=== PATIENT | male | born 1945 | race Caucasian/White ===

== ENCOUNTER 2017-08-19 17:25 | Emergency (ER) | payer MEDICARE, BC ==
[2017-08-19 17:48] VITALS: BP 156/91
--- NOTE | 2017-08-19 19:49 | EDM.PDOC ---
ED HPI GENERAL MEDICAL PROBLEM - General Chief Complaint: Lower Extremity Injury/Pain Stated Complaint: FELL ON ICE, BAD PAIN IN LEFT HIP Time Seen by Provider: 08/19/17 18:21 Source of Information: Reports: Patient, RN Notes Reviewed History Limitations: Reports: No Limitations - History of Present Illness INITIAL COMMENTS - FREE TEXT/NARRATIVE: 18.36 Brought in by Chief complaint Left leg pain History of present illness 72-year-old male slipped on ice left leg went sliding out to the side and he went down. He felt a snap or tear in his left hamstring area. Very difficult to walk and move after that, very slow to walk, drove 2 hours home, then his drove him here. Recently seen for left knee, has arthritis there and for right shoulder pain, has rotator cuff upcoming surgery. Did not taking any analgesics for his pain yet Left Leg Pain Score (Numeric/FACES): 4 - Related Data Allergies Allergy/AdvReac Type Severity Reaction Status Date / Time No Known Allergies Allergy Verified 08/19/17 18:06 Home Meds: Home Meds Aspirin [Adult Low Dose Aspirin EC] 81 mg PO DAILY 05/13/14 [History] Metoprolol Tartrate [Lopressor] 12.5 mg PO BID 05/13/14 [History] Multivitamin [Multi-Vitamin Daily] 1 tab PO DAILY 05/13/14 [History] Nitroglycerin [Nitrostat] 0.4 mg SL DAILY 05/13/14 [History] Simvastatin [Zocor] 20 mg PO BEDTIME 05/13/14 [History] Diclofenac Sodium [Voltaren 1%] 1 applic TP QID 10/27/15 [History] Naproxen Sodium 220 mg PO DAILY PRN 10/27/15 [History] [place]-3/DHA/Epa/Fish Oil [[place]-3 Fish Oil 1,000 MG Sfgl] 1,000 mg PO DAILY [History] Acetaminophen/oxyCODONE [Percocet 325-5 MG] 1 - 2 each PO Q4H PRN #12 tab [Rx] Amoxicillin/Clavulanate K [Augmentin 875-125 MG] 1 tab PO BID 08/19/17 [History] Cyclobenzaprine HCl 10 mg PO TID PRN #10 tablet 08/19/17 [Rx] Past Medical History HEENT History: Reports: Cataract, Hard of Hearing Cardiovascular History: Reports: Bypass, High Cholesterol, Hypertension Respiratory History: Reports: None Gastrointestinal History: Reports: None Genitourinary History: Reports: Prostate Disorder Musculoskeletal History: Reports: Back Pain, Chronic, Other (See Below) Other Musculoskeletal History: BROKEN TOES Neurological History: Reports: None Psychiatric History: Reports: None Endocrine/Metabolic History: Reports: None Hematologic History: Reports: None Immunologic History: Reports: None Oncologic (Cancer) History: Reports: None Dermatologic History: Reports: None - Infectious Disease History Infectious Disease History: Reports: None - Past Surgical History HEENT Surgical History: Reports: Adenoidectomy, Cataract Surgery, Tonsillectomy , Other (See Below) Cardiovascular Surgical History: Reports: Coronary Artery Bypass Male Surgical History: Reports: Prostate Biopsy Neurological Surgical History: Reports: Discectomy, Laminectomy Social & Family History - Family History Family Medical History: Noncontributory HEENT: Reports: None Other HEENT Family History: PT STATES HE KNOWS VERY LITTLE ABOUT HIS FAMILY MEDICAL HISTORY Cardiac: Reports: None Respiratory: Reports: COPD GI: Reports: GERD : Reports: None OBGYN: Reports: None Musculoskeletal: Reports: None Neurological: Reports: None Psychiatric: Reports: None Endocrine/Metabolic: Reports: None Hematologic: Reports: None Immunologic: Reports: None Dermatologic: Reports: None Oncologic: Reports: None - Tobacco Use Smoking Status *Q: Never Smoker Years of Tobacco use: 6 Packs/Tins Daily: 0.2 Used Tobacco, but Quit: Yes Month Tobacco Last Used: 1969 Second Hand Smoke Exposure: No - Caffeine Use Caffeine Use: Reports: Coffee - Alcohol Use Days Per Week of Alcohol Use: 2 Number of Drinks Per Day: 1 Total Drinks Per Week: 2 - Recreational Drug Use Recreational Drug Use: No Review of Systems - Review of Systems Review Of Systems: See Below Constitutional: Reports: No Symptoms Eyes: Reports: No Symptoms Mouth/Throat: Reports: No Symptoms Respiratory: Reports: No Symptoms GI/Abdominal: Reports: No Symptoms Musculoskeletal: Reports: Shoulder Pain (Right), Leg Pain (Left hamstring), Joint Pain (Left knee) Skin: Reports: No Symptoms Neurological: Reports: No Symptoms ED EXAM, GENERAL - Physical Exam Exam: See Below Exam Limited By: No Limitations General Appearance: Alert, Mild Distress, Other (Appears well, occasionally wincing in pain and spasms in his hamstring area) Eye Exam: Bilateral Eye: Normal Inspection Nose: Normal Inspection Head: Atraumatic, Normocephalic Neck: Normal Inspection Respiratory/Chest: No Respiratory Distress, No Accessory Muscle Use Cardiovascular: Normal Peripheral Pulses, Regular Rate, Rhythm Extremities: Other (Tenderness upper end left hamstringDecreased ability to move against resistance, appears to be some deficiency in the muscle, no obvious swelling) Neurological: Alert, Oriented, No Motor/Sensory Deficits Skin Exam: Warm, Dry, Intact, Normal Color, No Rash Course - Vital Signs Last Recorded V/S: Last Vital Signs Temp 36.6 C 08/19/17 18:04 Pulse 60 08/19/17 18:04 Resp 18 08/19/17 18:04 BP 156/91 H 08/19/17 18:04 Pulse Ox 95 08/19/17 18:04 - Re-Assessments/Exams Free Text/Narrative Re-Assessment/Exam: 08/19/17 19:47 72-year-old male who slipped on ice with injury to left hamstring Definite weakness in that muscle some deficiency on exam, possible partial tear X-ray pelvis negative follow-up with orthopedics in the next week because of possible hamstring tear Medications as below Has a walker at home Crutches can be obtained if walker does not well for him 08/19/17 19:50 08/19/17 20:02 Departure - Departure Time of Disposition: 19:48 Disposition: Home, Self-Care 01 Condition: Good Clinical Impression: Hamstring muscle strain Qualifiers: Encounter type: initial encounter Laterality: left Qualified Code(s): S76.312A - Strain of muscle, fascia and tendon of the posterior muscle group at thigh level, left thigh, initial encounter - Discharge Information Prescriptions: Acetaminophen/oxyCODONE [Percocet 325-5 MG] 1 - 2 each PO Q4H PRN #12 tab PRN Reason: Moderate to severe pain Cyclobenzaprine HCl 10 mg PO TID PRN #10 tablet PRN Reason: Muscle Spasm Instructions: Muscle Strain, [id number] Referrals: Art Gerard PA-C [Primary Care Provider] - Forms: ED Department Discharge Additional Instructions: Staying active within the limits of your pain Use walker or crutches for ambulation Make appointment with orthopedics in the next week
--- NOTE | 2017-08-20 14:51 | CR ---
Pelvis 1V or 2V INDICATION: LT BUTTOCKS PAIN, FALL FINDINGS: No acute fracture. Mild degenerative narrowing both hips.
== END 2017-08-19 20:27 | disposition home or self-care (01) ==
LOC: JP.ED 17:25
DX: S76.312A Strain of muscle, fascia and tendon of the posterior muscle group at thigh level, left thigh, initial encounter (principal); I10 Essential (primary) hypertension; E78.00 Pure hypercholesterolemia, unspecified; Z87.891 Personal history of nicotine dependence; Z79.82 Long term (current) use of aspirin; Z79.899 Other long term (current) drug therapy; W00.0XXA Fall on same level due to ice and snow, initial encounter
CPT/HCPCS: 72170; 72170-26; 99283; 99284

== ENCOUNTER 2018-01-06 10:38 | Emergency (ER) | payer MEDICARE, BC ==
[2018-01-06] MEDS ORDERED: Aspirin 81 MG Tab.Chew PO ONE (11:43)
--- NOTE | 2018-01-06 11:46 | EDM.PDOC ---
ED HPI GENERAL MEDICAL PROBLEM - General Chief Complaint: Chest Pain Stated Complaint: HIGH BP/CHEST DISCOMFORT Time Seen by Provider: 01/06/18 11:44 Source of Information: Reports: Patient, Family, RN Notes Reviewed History Limitations: Reports: No Limitations - History of Present Illness INITIAL COMMENTS - FREE TEXT/NARRATIVE: 72-year-old gentleman presents to the emergency department day complaint of chest pressure, he states the pressure started last night has come and gone he did have about this morning he was nauseated he always feels short of breath because of a history of coronary artery bypass grafting Chest Pain Score (Numeric/FACES): 2 - Related Data Allergies Allergy/AdvReac Type Severity Reaction Status Date / Time No Known Allergies Allergy Verified 01/06/18 10:51 Home Meds: Home Meds Aspirin [Adult Low Dose Aspirin EC] 81 mg PO DAILY 05/13/14 [History] Metoprolol Tartrate [Lopressor] 12.5 mg PO BID 05/13/14 [History] Multivitamin [Multi-Vitamin Daily] 0.5 tab PO BID 05/13/14 [History] Nitroglycerin [Nitrostat] 0.4 mg SL DAILY 05/13/14 [History] Simvastatin [Zocor] 20 mg PO BEDTIME 05/13/14 [History] Diclofenac Sodium [Voltaren 1%] 1 applic TP QID PRN 10/27/15 [History] Naproxen Sodium 220 mg PO DAILY PRN 10/27/15 [History] [place]-3/DHA/Epa/Fish Oil [[place]-3 Fish Oil 1,000 MG Sfgl] 1,000 mg PO DAILY [History] Tamsulosin [Flomax] 0.4 mg PO BEDTIME 01/06/18 [History] Past Medical History HEENT History: Reports: Cataract, Hard of Hearing Cardiovascular History: Reports: Bypass, CAD, High Cholesterol, Hypertension Genitourinary History: Reports: Prostate Disorder Musculoskeletal History: Reports: Back Pain, Chronic, Other (See Below) Other Musculoskeletal History: L hamstring strain - Past Surgical History HEENT Surgical History: Reports: Adenoidectomy, Cataract Surgery, Tonsillectomy , Other (See Below) Male Surgical History: Reports: Prostate Biopsy Neurological Surgical History: Reports: Discectomy, Laminectomy Social & Family History - Family History Family Medical History: Noncontributory HEENT: Reports: None Other HEENT Family History: PT STATES HE KNOWS VERY LITTLE ABOUT HIS FAMILY MEDICAL HISTORY Cardiac: Reports: None Respiratory: Reports: COPD GI: Reports: GERD : Reports: None OBGYN: Reports: None Musculoskeletal: Reports: None Neurological: Reports: None Psychiatric: Reports: None Endocrine/Metabolic: Reports: None Hematologic: Reports: None Immunologic: Reports: None Dermatologic: Reports: None Oncologic: Reports: None - Tobacco Use Smoking Status *Q: Unknown Ever Smoked Years of Tobacco use: 6 Packs/Tins Daily: 0.2 Used Tobacco, but Quit: Yes Month/Year Tobacco Last Used: 1969 Second Hand Smoke Exposure: No - Caffeine Use Caffeine Use: Reports: Coffee - Alcohol Use Days Per Week of Alcohol Use: 2 Number of Drinks Per Day: 1 Total Drinks Per Week: 2 - Recreational Drug Use Recreational Drug Use: No ED ROS GENERAL - Review of Systems Review Of Systems: See Below Constitutional: Reports: No Symptoms HEENT: Reports: No Symptoms Respiratory: Reports: Shortness of Breath. Denies: Cough, Sputum Cardiovascular: Reports: Chest Pain, Dyspnea on Exertion GI/Abdominal: Reports: No Symptoms : Reports: No Symptoms Musculoskeletal: Reports: No Symptoms Skin: Reports: No Symptoms Neurological: Reports: No Symptoms ED EXAM, GENERAL - Physical Exam Exam: See Below Exam Limited By: No Limitations General Appearance: Alert, WD/WN, No Apparent Distress Eye Exam: Bilateral Eye: Normal Inspection Head: Atraumatic, Normocephalic Neck: Normal Inspection, Supple, Non-Tender, Full Range of Motion Respiratory/Chest: No Respiratory Distress, Lungs Clear, Normal Breath Sounds, No Accessory Muscle Use, Other (tender to palpation of left chest) Cardiovascular: Regular Rate, Rhythm, No Murmur GI/Abdominal: Soft, Non-Tender Extremities: No Pedal Edema Course - Vital Signs Last Recorded V/S: Last Vital Signs Temp 97.2 F 01/06/18 10:47 Pulse 63 01/06/18 10:47 Resp 14 01/06/18 10:47 BP 155/76 H 01/06/18 10:47 Pulse Ox 96 01/06/18 10:47 - Orders/Labs/Meds Orders: Active Orders 24 hr Category Date Time Status Cardiac Monitoring [RC] .As Directed Care 01/06/18 11:43 Active EKG Documentation Completion [RC] ASDIRECTED Care 01/06/18 11:43 Active EKG 12 Lead [EK] Stat Ther 01/06/18 11:43 Ordered Labs: Laboratory Tests 01/06/18 01/06/18 Range/Units 11:52 11:52 WBC 5.2 (4.5-11.0) K/uL RBC 4.73 (4.30-5.90) M/uL Hgb 14.2 (12.0-15.0) g/dL Hct 41.7 (40.0-54.0) % MCV 88 (80-98) fL MCH 30 (27-31) pg MCHC 34 (32-36) % Plt Count 244 (150-400) K/uL Neut % (Auto) 66 (36-66) % Lymph % (Auto) 21 L (24-44) % [place] % (Auto) 12 H (2-6) % Eos % (Auto) 2 (2-4) % Baso % (Auto) 1 (0-1) % Sodium 141 (140-148) mmol/L Potassium 4.4 (3.6-5.2) mmol/L Chloride 108 (100-108) mmol/L Carbon Dioxide 25 (21-32) mmol/L Anion Gap 7.7 (5.0-14.0) mmol/L BUN 20 H (7-18) mg/dL Creatinine 0.9 (0.8-1.3) mg/dL Est Cr Clr Drug Dosing 72.83 mL/min Estimated GFR (MDRD) > 60 (>60) Glucose 97 (74-106) mg/dL Calcium 9.1 D (8.5-10.1) mg/dL Total Bilirubin 0.5 (0.2-1.0) mg/dL AST 19 (15-37) U/L ALT 39 (12-78) U/L Alkaline Phosphatase 49 (46-116) U/L Troponin I < 0.017 (0.000-0.056) ng/mL Total Protein 6.7 (6.4-8.2) g/dL Albumin 3.9 (3.4-5.0) g/dL Globulin 2.8 (2.3-3.5) g/dL Albumin/Globulin Ratio 1.4 (1.2-2.2) Meds: Medications Discontinued Medications Generic Name Dose Route Start Last Admin Trade Name Freq PRN Reason Stop Dose Admin Aspirin 324 mg 01/06/18 11:43 01/06/18 12:10 Aspirin PO 01/06/18 11:44 324 mg ONETIME ONE Administration Ketorolac Tromethamine 60 mg 01/06/18 12:26 01/06/18 12:33 Toradol IM 01/06/18 12:27 60 mg ONETIME ONE Administration Departure - Departure Time of Disposition: 13:44 Disposition: Home, Self-Care 01 Condition: Good Clinical Impression: Atypical chest pain Referrals: Magno Arnett PA [Primary Care Provider] - Forms: ED Department Discharge Additional Instructions: Follow-up with your primary care in the next 3-5 days for reevaluation, call return to the emergency department worsening of symptoms - My Orders Last 24 Hours: My Active Orders 01/06/18 11:43 Cardiac Monitoring [RC] .As Directed EKG Documentation Completion [RC] ASDIRECTED EKG 12 Lead [EK] Stat - Assessment/Plan Last 24 Hours: My Active Orders 01/06/18 11:43 Cardiac Monitoring [RC] .As Directed EKG Documentation Completion [RC] ASDIRECTED EKG 12 Lead [EK] Stat Plan: Assessment Acuity = acute Site and laterality = [chest pain complicated patient with known history coronary artery disease] Etiology = suspicious for muscle skeletal Manifestations = none Location of injury = Home Lab values = CBC, CMP, troponin, EKG, chest x-ray unremarkable Plan He had good relief with the Toradol injection is chest pain-free at this time have him follow-up with his primary care in the next 3-5 days for reevaluation This note was dictated using [employer] voice recognition software please call with any questions on syntax or marilyn.
--- NOTE | 2018-01-06 12:10 | CR ---
Sternotomy. Heart size upper limits of normal. Low lung volumes. No focal consolidation.
[2018-01-06] MEDS ORDERED: Ketorolac 60 MG/2 ML SDV IM ONE (12:26)
[2018-01-06 13:50] VITALS: BP 128/74
== END 2018-01-06 14:00 | disposition home or self-care (01) ==
LOC: JP.ED 10:38
DX: R07.89 Other chest pain (principal); E78.00 Pure hypercholesterolemia, unspecified; I10 Essential (primary) hypertension; I25.10 Atherosclerotic heart disease of native coronary artery without angina pectoris; Z79.82 Long term (current) use of aspirin; Z79.899 Other long term (current) drug therapy; Z87.891 Personal history of nicotine dependence
CPT/HCPCS: 36415; 71046; 80053; 84484; 85025; 93005; 96372; 99284; 99285; A9270; J1885; 93010

== ENCOUNTER 2018-06-13 07:45 | Day surgery (SDC) | payer MEDICARE, BC ==
[2018-06-13] MEDS ORDERED: Dextrose 5%-Lactated Ringers 1,000 ML IV SCH (09:00)
[2018-06-13] MEDS ORDERED: Propofol 200 MG/20 ML SDV ONE (09:44)
[2018-06-13] MEDS ORDERED: fentaNYL 100 MCG/2 ML SDV ONE (09:44)
[2018-06-13 12:12] VITALS: BP 110/70
[2018-06-13] MEDS ORDERED: Iohexol 300 MG/ML 30 ML Bottle PO ONE (13:06)
[2018-06-13] MEDS ORDERED: Iopamidol 612 MG/ML 150 ML Bottle IV SCH (13:15)
[2018-06-13] MEDS ORDERED: Sodium Chloride 0.9% 100 ML IV SCH (13:15)
--- NOTE | 2018-06-13 13:56 | CT ---
Abdomen Pelvis w Cont CLINICAL HISTORY: Upper abdominal pain, nausea COMPARISON: 2013. TECHNIQUE: Axial tomographic images are obtained from the dome of the diaphragm to the pubic symphysi s without IV contrast enhancement. Water soluble oral contrast was used. Auto dosage reduction and it erative reconstruction techniques employed. FINDINGS: The lung bases are clear. The liver shows no mass or biliary dilatation. The gallbladder hernandez s a normal appearance. The spleen has a normal size and shape. The pancreas shows no mass or inflamma tory change. The adrenal glands have a normal appearance bilaterally. The kidneys show no mass, stone s or hydronephrosis. The ureters show some mild ureterectasis diffusely. This extends to the UVJ. The re is some mild bladder wall hypertrophy. There is significant prostatic enlargement which extends to the region of the UVJs bilaterally. This may be causing some low-grade obstruction. The aorta has at heromatous changes without aneurysm. There are some scattered small retroperitoneal lymph nodes throu ghout. The no other suspicious lymphadenopathy is identified. Patient has moderate retained stool. Th e appendix has a normal contour. IMPRESSION: Mild ureterectasis bilaterally without obstructing lesion identified. There is generaliz ed bladder wall hypertrophy is significant prosthetic enlargement which may be causing some low-grade obstruction. No mass, adenopathy or inflammatory change
--- NOTE | 2018-06-19 14:39 | OR ---
DATE OF PROCEDURE: 06/13/2018 PREOPERATIVE DIAGNOSES: Upper abdominal discomfort and nausea. POSTOPERATIVE DIAGNOSIS: Very minimal if any distal gastritis. OPERATIVE PROCEDURES: Upper GI endoscopy with antral biopsies for CLOtest. ANESTHESIA: IV sedation. INDICATION FOR PROCEDURE: This 73-year-old male presenting with some ongoing episodes of nausea and a vague discomfort in the upper abdomen. The plan is to proceed with an upper GI endoscopy with biopsies as indicated. Potential risks including bleeding and perforation were discussed, and the patient wishes to proceed. DETAILS OF PROCEDURE: The patient was taken to the operating room and placed in a left lateral decubitus position. IV sedation was administered, after which the upper GI endoscope was passed orally through the length of the esophagus and into the stomach with retroflexion view of the fundus, thereafter through the pyloric channel, and into the proximal duodenum. Findings included normal hypopharynx, larynx, upper esophageal sphincter, and esophageal body. At the EG junction, no significant hiatal hernia or inflammation were noted. There was no upward extension of the gastroesophageal junction and mucosal line above the upper gastric folds. Within the stomach, the proximal stomach was unremarkable. There was perhaps very minimal redness in the antrum. This was however essentially normal in appearance. Pyloric channel and duodenum to the junction of the third and fourth portions were unremarkable. At this point, biopsies were obtained from the antrum and sent for CLOtest for H. pylori. Minimal bleeding from the biopsy site was seen, and the procedure then concluded. Overall, the patient's findings do not account for his symptoms. Given this, we will obtain a CT scan of the abdomen and pelvis, make sure we are not missing something in that regard. See the patient in clinic next week. If that test is negative and he remains symptomatic, we might consider a HIDA scan to evaluate the gallbladder. Matthew Bonilla MD /[id number]
== END 2018-06-13 13:31 | disposition home or self-care (01) ==
LOC: JP.SDS 07:45
PROVIDERS: ATTEND Surgery
DX: K29.70 Gastritis, unspecified, without bleeding (principal); E78.5 Hyperlipidemia, unspecified; N13.4 Hydroureter
CPT/HCPCS: 43239; 74177; 87081; J2704; J3010; J7030; J7042; Q9965

== ENCOUNTER 2019-03-27 15:07 | Emergency (ER) | payer MEDICARE, OTHER ==
[2019-03-27 15:14] VITALS: BP 137/82
--- NOTE | 2019-03-27 15:52 | EDM.PDOC ---
ED HPI GENERAL MEDICAL PROBLEM - General Chief Complaint: Cardiovascular Problem Stated Complaint: HEART ISSUES Time Seen by Provider: 03/27/19 15:30 Source of Information: Reports: Patient, Family History Limitations: Reports: No Limitations - History of Present Illness INITIAL COMMENTS - FREE TEXT/NARRATIVE: 74-year-old male who developed epigastric chest discomfort 1 hour ago, radiating into his neck but not to the shoulders or arms, did not radiate to the back. Some pain with deep breathing, no significant shortness of breath, diaphoresis or nausea. He took nitroglycerin 3 which she didn't help and by the time he got to the hospital. He is very concerned because he just received two cardiac stents 5 days ago. He is on an event monitor as well. Headache Pain Score (Numeric/FACES): 3 - Related Data Allergies Allergy/AdvReac Type Severity Reaction Status Date / Time No Known Allergies Allergy Verified 03/27/19 15:15 Home Meds: Home Meds Aspirin [Adult Low Dose Aspirin EC] 81 mg PO DAILY 05/13/14 [History] Multivitamin [Multi-Vitamin Daily] 0.5 tab PO BID 05/13/14 [History] Nitroglycerin [Nitrostat] 0.4 mg SL DAILY 05/13/14 [History] Diclofenac Sodium [Voltaren 1%] 1 applic TP QID PRN 10/27/15 [History] Naproxen Sodium 220 mg PO DAILY PRN 10/27/15 [History] Tamsulosin [Flomax] 0.4 mg PO BEDTIME 01/06/18 [History] Rosuvastatin [Crestor] 20 mg PO BEDTIME 06/12/18 [History] Sildenafil Citrate [Sildenafil] 20 - 60 mg PO ASDIRECTED PRN 06/12/18 [History] Clopidogrel [Plavix] 75 mg PO DAILY 03/27/19 [History] Past Medical History HEENT History: Reports: Cataract, Hard of Hearing Cardiovascular History: Reports: Bypass, CAD, High Cholesterol, Stents Respiratory History: Reports: None Gastrointestinal History: Reports: None Genitourinary History: Reports: Prostate Disorder Musculoskeletal History: Reports: Back Pain, Chronic, Other (See Below) Other Musculoskeletal History: L hamstring strain Neurological History: Reports: None Psychiatric History: Reports: None Endocrine/Metabolic History: Reports: None Hematologic History: Reports: None Immunologic History: Reports: None Oncologic (Cancer) History: Reports: None Dermatologic History: Reports: None - Infectious Disease History Infectious Disease History: Reports: Chicken Pox, Mumps - Past Surgical History Head Surgeries/Procedures: Reports: None HEENT Surgical History: Reports: Adenoidectomy, Cataract Surgery, Tonsillectomy , Other (See Below) Male Surgical History: Reports: Prostate Biopsy Neurological Surgical History: Reports: Lumbar Spine Musculoskeletal Surgical History: Reports: None Social & Family History - Family History Family Medical History: Noncontributory HEENT: Reports: None Other HEENT Family History: PT STATES HE KNOWS VERY LITTLE ABOUT HIS FAMILY MEDICAL HISTORY Cardiac: Reports: None Respiratory: Reports: COPD GI: Reports: GERD : Reports: None OBGYN: Reports: None Musculoskeletal: Reports: None Neurological: Reports: None Psychiatric: Reports: None Endocrine/Metabolic: Reports: None Hematologic: Reports: None Immunologic: Reports: None Dermatologic: Reports: None Oncologic: Reports: None - Tobacco Use Smoking Status *Q: Never Smoker Second Hand Smoke Exposure: No - Caffeine Use Caffeine Use: Reports: Coffee, Soda - Recreational Drug Use Recreational Drug Use: No ED ROS GENERAL - Review of Systems Review Of Systems: See Below Constitutional: Denies: Fever, Chills HEENT: Reports: No Symptoms Respiratory: Reports: Pleuritic Chest Pain. Denies: Shortness of Breath Cardiovascular: Reports: Chest Pain (Mostly substernal pressure, in the center of his chest and nonradiating except some discomfort up into the base of his neck) GI/Abdominal: Denies: Abdominal Pain, Nausea, Vomiting Musculoskeletal: Reports: No Symptoms Skin: Denies: Diaphoresis Neurological: Denies: Headache, Numbness Psychiatric: Reports: Anxiety ED EXAM, GENERAL - Physical Exam Exam: See Below Exam Limited By: No Limitations General Appearance: Alert, No Apparent Distress Head: Atraumatic Respiratory/Chest: No Respiratory Distress, Lungs Clear, Other (I cannot reproduce pain with palpation of the chest wall or abdomen) Cardiovascular: Regular Rate, Rhythm GI/Abdominal: Soft, Non-Tender Extremities: Normal Inspection. No: Pedal Edema Neurological: Alert, Oriented Psychiatric: Normal Affect, Normal Mood Course - Vital Signs Last Recorded V/S: Last Vital Signs Temp 97.2 F 03/27/19 15:13 Pulse 82 03/27/19 15:13 Resp 17 03/27/19 15:13 BP 137/82 03/27/19 15:13 Pulse Ox 95 03/27/19 15:13 - Orders/Labs/Meds Labs: Laboratory Tests 03/27/19 03/27/19 Range/Units 15:35 15:50 WBC 6.5 (4.5-11.0) K/uL RBC 4.20 L (4.30-5.90) M/uL Hgb 12.5 (12.0-15.0) g/dL Hct 37.9 L (40.0-54.0) % MCV 90 (80-98) fL MCH 30 (27-31) pg MCHC 33 (32-36) % Plt Count 268 (150-400) K/uL Neut % (Auto) 58 (36-66) % Lymph % (Auto) 19 L (24-44) % [place] % (Auto) 19 H (2-6) % Eos % (Auto) 5 H (2-4) % Baso % (Auto) 0 (0-1) % Sodium 137 L (140-148) mmol/L Potassium 4.1 (3.6-5.2) mmol/L Chloride 105 (100-108) mmol/L Carbon Dioxide 28 (21-32) mmol/L Anion Gap 8.1 (5.0-14.0) mmol/L BUN 20 H (7-18) mg/dL Creatinine 1.0 (0.8-1.3) mg/dL Est Cr Clr Drug Dosing 65.79 mL/min Estimated GFR (MDRD) > 60 (>60) Glucose 129 H (74-106) mg/dL Calcium 9.5 (8.5-10.1) mg/dL Troponin I 0.049 (0.000-0.056) ng/mL - Re-Assessments/Exams Free Text/Narrative Re-Assessment/Exam: 03/27/19 16:00 EKG showed no acute findings. CBC BMP and troponin were obtained and the patient was kept on cardiac monitoring. 03/27/19 16:45 CBC and BMP were reassuring, troponin was 0.04. This is not abnormal but not 0. Patient redeveloped no symptoms while in the emergency room and was anxious to leave. I explained to the patient the only way we can guarantee or be reassured that there was no small OH earlier today was to repeat the troponin in 3-4 hours but he declined to stay. He will return if symptoms recur. Departure - Departure Time of Disposition: 16:50 Disposition: Home, Self-Care 01 Clinical Impression: Atypical chest pain Instructions: Nonspecific Chest Pain Referrals: PCP,None [Primary Care Provider] - Forms: ED Department Discharge Care Plan Goals: Continue your current medications, increase activity as tolerated and return anytime if pain recurs, is persistent or you develop other concerns. 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
== END 2019-03-27 16:56 | disposition home or self-care (01) ==
LOC: JP.ED 15:07
DX: R07.89 Other chest pain (principal); I25.10 Atherosclerotic heart disease of native coronary artery without angina pectoris; E78.00 Pure hypercholesterolemia, unspecified; Z79.899 Other long term (current) drug therapy; Z79.82 Long term (current) use of aspirin
CPT/HCPCS: 36415; 80048; 84484; 85025; 93005; 99284-25

== ENCOUNTER 2019-03-29 05:02 | Inpatient (IN) | payer MEDICARE, OTHER ==
[2019-03-29] MEDS ORDERED: Sodium Chloride 0.9% 1,000 ML IV SCH ×2 (05:10→06:10)
[2019-03-29] MEDS ORDERED: Sodium Chloride 0.9% 1,000 ML IV ONE (05:10)
[2019-03-29] MEDS ORDERED: Acetaminophen 500 MG Tab PO ONE (05:24)
[2019-03-29] MEDS ORDERED: Sodium Chloride 0.9% 10 ML Syringe FLUSH PRN ×2 (05:24→09:22)
[2019-03-29] MEDS ORDERED: Lidocaine 2% Jelly 10 ML Urojet MUCMEM ONE (05:34)
--- NOTE | 2019-03-29 06:22 | CRLCR ---
Indication: Chest pain Technique: Chest 1 view Comparison: 01/06/2018. Findings/Impression: Cardiovascular and mediastinum: Indistinct left cardiac border. Sternotomy sutures and mediastinal clips. Lungs and pleural space: A rotated study. Mild ill-defined increased attenuation in the left mid and lower lung which may represent evolving atelectasis or consolidation. Apparent left hilar fullness. Correlate clinically and followup with PA and lateral views. No pleural effusions. Bones and soft tissues: A device projecting over the left lung base. Stable osseous structures. Dictated by Luke Monzon MD @ 03/29/2019 6:19:55 AM Dictated by: Luke Monzon MD @ 03/29/2019 06:20:01 (Electronically Signed)
[2019-03-29] MEDS ORDERED: cefTRIAXone 2 GM in Sodium Chloride 0.9% 50 ML IV ONE (06:31)
--- NOTE | 2019-03-29 06:41 | EDM.PDOC ---
ED HPI GENERAL MEDICAL PROBLEM - General Chief Complaint: Fever Stated Complaint: FEVER/CHILLS Time Seen by Provider: 03/29/19 05:22 Source of Information: Reports: Patient History Limitations: Reports: No Limitations - History of Present Illness INITIAL COMMENTS - FREE TEXT/NARRATIVE: This gentleman comes in for fever chills and some shortness of breath. He had to coronary stents placed last Saturday 6 days ago. Shortly after that he had acute urinary retention and had a North catheter inserted and believe that was last Saturday 4 days ago. He was in our emergency room 2 days ago with some chest pain initially took some nitroglycerin 3 tablets but didn't help but he came in here and by then the pain had subsided. It was a negative cardiac workup but he did not want to wait for the three-hour troponin. He was doing fine after that until this morning when he woke up with fever and chills rapid breathing and the feeling of shortness of breath. He denies any pain or discomfort in the chest. He says his North catheter is working fine but he said that frequently the urine drains around the catheter. He has emptied the bag several times even in the past 24 hours so feels like the catheter is working properly denies pain Pain Score (Numeric/FACES): 0 - Related Data Allergies Allergy/AdvReac Type Severity Reaction Status Date / Time No Known Allergies Allergy Verified 03/27/19 15:15 Home Meds: Home Meds Aspirin [Adult Low Dose Aspirin EC] 81 mg PO DAILY 05/13/14 [History] Multivitamin [Multi-Vitamin Daily] 0.5 tab PO BID 05/13/14 [History] Nitroglycerin [Nitrostat] 0.4 mg SL DAILY 05/13/14 [History] Diclofenac Sodium [Voltaren 1%] 1 applic TP QID PRN 10/27/15 [History] Naproxen Sodium 220 mg PO DAILY PRN 10/27/15 [History] Tamsulosin [Flomax] 0.4 mg PO BEDTIME 01/06/18 [History] Rosuvastatin [Crestor] 20 mg PO BEDTIME 06/12/18 [History] Sildenafil Citrate [Sildenafil] 20 - 60 mg PO ASDIRECTED PRN 06/12/18 [History] Clopidogrel [Plavix] 75 mg PO DAILY 03/27/19 [History] Past Medical History HEENT History: Reports: Cataract, Hard of Hearing, Other (See Below) Other HEENT History: bilateral hearing aides Cardiovascular History: Reports: Bypass, CAD, High Cholesterol, Stents, Other ( See Below) Other Cardiovascular History: x2 cardiac stents placed 03/23/[address] [facility] Respiratory History: Reports: None Gastrointestinal History: Reports: None Genitourinary History: Reports: BPH, Prostate Disorder Musculoskeletal History: Reports: Back Pain, Chronic, Other (See Below) Other Musculoskeletal History: L hamstring strain Neurological History: Reports: None Psychiatric History: Reports: Anxiety Endocrine/Metabolic History: Reports: None Hematologic History: Reports: None Immunologic History: Reports: None Oncologic (Cancer) History: Reports: None Dermatologic History: Reports: None - Infectious Disease History Infectious Disease History: Reports: Chicken Pox, Measles - Past Surgical History Head Surgeries/Procedures: Reports: None HEENT Surgical History: Reports: Adenoidectomy, Cataract Surgery, Tonsillectomy , Other (See Below) Cardiovascular Surgical History: Reports: Coronary Artery Bypass, Coronary Artery Stent Male Surgical History: Reports: Prostate Biopsy Neurological Surgical History: Reports: Lumbar Spine Social & Family History - Family History Family Medical History: Noncontributory HEENT: Reports: None Other HEENT Family History: PT STATES HE KNOWS VERY LITTLE ABOUT HIS FAMILY MEDICAL HISTORY Cardiac: Reports: None Respiratory: Reports: COPD GI: Reports: GERD : Reports: None OBGYN: Reports: None Musculoskeletal: Reports: None Neurological: Reports: None Psychiatric: Reports: None Endocrine/Metabolic: Reports: None Hematologic: Reports: None Immunologic: Reports: None Dermatologic: Reports: None Oncologic: Reports: None - Tobacco Use Smoking Status *Q: Never Smoker - Caffeine Use Caffeine Use: Reports: Coffee - Recreational Drug Use Recreational Drug Use: No ED ROS GENERAL - Review of Systems Review Of Systems: See Below Constitutional: Reports: Fever, Chills, Diaphoresis HEENT: Reports: No Symptoms Respiratory: Reports: Shortness of Breath Cardiovascular: Reports: No Symptoms Endocrine: Reports: No Symptoms GI/Abdominal: Reports: No Symptoms : Reports: Other (See history of present illness) Musculoskeletal: Reports: No Symptoms Skin: Reports: No Symptoms Neurological: Reports: No Symptoms ED EXAM, SEPSIS - Physical Exam Exam: See Below Exam Limited By: No Limitations General Appearance: Alert, WD/WN, Moderate Distress (This man appears somewhat anxious tremulous and is hyperventilating) Eye Exam: Bilateral Eye: Normal Inspection Ears: Normal External Exam Nose: Normal Inspection Throat/Mouth: Normal Oropharynx Head: Atraumatic Neck: Normal Inspection Respiratory/Chest: Decreased Breath Sounds (Decreased air movement to left mid and lower lung may), Other (Tachypnea) Cardiovascular: Normal Peripheral Pulses, Regular Rate, Rhythm, No Murmur GI/Abdominal Exam: Soft, Non-Tender Back: Normal Inspection Extremities: Normal Inspection Neurological: Alert, Oriented Psychiatric: Normal Affect Skin: Warm, Dry, Other (Arterial puncture site to left forearm looks normal) Course - Vital Signs Last Recorded V/S: Last Vital Signs Temp 40.1 C H 03/29/19 06:32 Pulse 106 H 03/29/19 06:32 Resp 24 H 03/29/19 06:32 BP 165/76 H 03/29/19 06:32 Pulse Ox 92 L 03/29/19 06:32 - Orders/Labs/Meds Orders: Active Orders 24 hr Category Date Time Status EKG Documentation Completion [RC] ASDIRECTED Care 03/29/19 05:24 Active CULTURE BLOOD [BC] Urgent Lab 03/29/19 05:20 Received CULTURE BLOOD [BC] Urgent Lab 03/29/19 05:27 Received Sodium Chloride 0.9% [Saline Flush] Med 03/29/19 05:24 Active 10 ml FLUSH ASDIRECTED PRN cefTRIAXone [Rocephin] 2 gm Med 03/29/19 06:31 Active Sodium Chloride 0.9% [Normal Saline] 50 ml IV ONETIME Blood Culture x2 Reflex Set [OM.PC] Urgent Oth 03/29/19 05:47 Ordered Saline Lock Insert [OM.PC] Urgent Oth 03/29/19 05:23 Ordered EKG 12 Lead [EK] Urgent Ther 03/29/19 05:23 Ordered Medication Orders Ceftriaxone Sodium 2 gm/ (Sodium Chloride) 50 mls @ 100 mls/hr IV ONETIME ONE Stop: 03/29/19 07:00 Last Admin: 03/29/19 06:44 Dose: 100 mls/hr Sodium Chloride (Saline Flush) 10 ml FLUSH ASDIRECTED PRN PRN Reason: Keep Vein Open Labs: Laboratory Tests 03/29/19 03/29/19 03/29/19 Range/Units 05:27 05:28 05:28 WBC 11.7 H (4.5-11.0) K/uL RBC 4.65 (4.30-5.90) M/uL Hgb 13.9 (12.0-15.0) g/dL Hct 41.0 (40.0-54.0) % MCV 88 (80-98) fL MCH 30 (27-31) pg MCHC 34 (32-36) % Plt Count 285 (150-400) K/uL Neut % (Auto) 88 H (36-66) % Lymph % (Auto) 7 L (24-44) % [place] % (Auto) 4 (2-6) % Eos % (Auto) 1 L (2-4) % Baso % (Auto) 0 (0-1) % Sodium 136 L (140-148) mmol/L Potassium 4.3 (3.6-5.2) mmol/L Chloride 101 (100-108) mmol/L Carbon Dioxide 23 (21-32) mmol/L Anion Gap 16.3 H (5.0-14.0) mmol/L BUN 19 H (7-18) mg/dL Creatinine 1.1 (0.8-1.3) mg/dL Est Cr Clr Drug Dosing 59.81 mL/min Estimated GFR (MDRD) > 60 (>60) Glucose 110 H (74-106) mg/dL Lactic Acid 2.5 H (0.4-2.0) mmol/L Calcium 9.5 (8.5-10.1) mg/dL Total Bilirubin 1.0 D (0.2-1.0) mg/dL AST 16 (15-37) U/L ALT 26 (12-78) U/L Alkaline Phosphatase 72 (46-116) U/L Troponin I (0.000-0.056) ng/mL Total Protein 7.3 (6.4-8.2) g/dL Albumin 3.6 (3.4-5.0) g/dL Globulin 3.7 H (2.3-3.5) g/dL Albumin/Globulin Ratio 1.0 L (1.2-2.2) Urine Color Urine Appearance Urine pH (4.5-8.0) Ur Specific [place] (1.008-1.030) Urine Protein (NEGATIVE) mg/dL Urine Glucose (UA) (NEGATIVE) mg/dL Urine Ketones (NEGATIVE) mg/dL Urine Occult Blood (NEGATIVE) Urine Nitrite (NEGAITVE) Urine Bilirubin (NEGATIVE) Urine Urobilinogen (NORMAL) mg/dL Ur Leukocyte Esterase (NEGATIVE) Urine RBC (0-5) Urine WBC (0-5) Ur Epithelial Cells Amorphous Sediment Urine Bacteria Urine Mucus 03/29/19 03/29/19 Range/Units 05:28 05:57 WBC (4.5-11.0) K/uL RBC (4.30-5.90) M/uL Hgb (12.0-15.0) g/dL Hct (40.0-54.0) % MCV (80-98) fL MCH (27-31) pg MCHC (32-36) % Plt Count (150-400) K/uL Neut % (Auto) (36-66) % Lymph % (Auto) (24-44) % [place] % (Auto) (2-6) % Eos % (Auto) (2-4) % Baso % (Auto) (0-1) % Sodium (140-148) mmol/L Potassium (3.6-5.2) mmol/L Chloride (100-108) mmol/L Carbon Dioxide (21-32) mmol/L Anion Gap (5.0-14.0) mmol/L BUN (7-18) mg/dL Creatinine (0.8-1.3) mg/dL Est Cr Clr Drug Dosing mL/min Estimated GFR (MDRD) (>60) Glucose (74-106) mg/dL Lactic Acid (0.4-2.0) mmol/L Calcium (8.5-10.1) mg/dL Total Bilirubin (0.2-1.0) mg/dL AST (15-37) U/L ALT (12-78) U/L Alkaline Phosphatase (46-116) U/L Troponin I 0.050 (0.000-0.056) ng/mL Total Protein (6.4-8.2) g/dL Albumin (3.4-5.0) g/dL Globulin (2.3-3.5) g/dL Albumin/Globulin Ratio (1.2-2.2) Urine Color Yellow Urine Appearance Cloudy Urine pH 8.0 (4.5-8.0) Ur Specific [place] 1.005 L (1.008-1.030) Urine Protein Trace (NEGATIVE) mg/dL Urine Glucose (UA) Normal (NEGATIVE) mg/dL Urine Ketones 15 H (NEGATIVE) mg/dL Urine Occult Blood Large (NEGATIVE) Urine Nitrite Positive H (NEGAITVE) Urine Bilirubin Negative (NEGATIVE) Urine Urobilinogen Normal (NORMAL) mg/dL Ur Leukocyte Esterase Large (NEGATIVE) Urine RBC Semi-packed H (0-5) Urine WBC Packed H (0-5) Ur Epithelial Cells Rare Amorphous Sediment Not seen Urine Bacteria Many Urine Mucus Not seen Meds: Medications Generic Name Dose Route Start Last Admin Trade Name Freq PRN Reason Stop Dose Admin Ceftriaxone Sodium 2 gm/ 50 mls @ 100 mls/hr 03/29/19 06:31 03/29/19 06:44 Sodium Chloride IV 03/29/19 07:00 100 mls/hr ONETIME ONE Administration Sodium Chloride 10 ml 03/29/19 05:24 Saline Flush FLUSH ASDIRECTED PRN Keep Vein Open Discontinued Medications Generic Name Dose Route Start Last Admin Trade Name Freq PRN Reason Stop Dose Admin Acetaminophen 1,000 mg 03/29/19 05:24 03/29/19 05:38 Tylenol Extra Strength PO 03/29/19 05:25 1,000 mg ONETIME ONE Administration Lidocaine HCl 10 ml 03/29/19 05:34 03/29/19 05:38 Xylocaine 2% Jelly MUCMEM 03/29/19 05:35 10 ml ONETIME ONE Administration - Radiology Interpretation Free Text/Narrative:: Chest x-ray shows rotation and mild ill-defined increased attenuation in the left mid and lower lung which may represent evolving atelectasis or consolidation - Re-Assessments/Exams Free Text/Narrative Re-Assessment/Exam: 03/29/19 06:44 EKG shows sinus tachycardia at 108 bpm probable left atrial enlargement interventricular conduction delay possible right bundle branch block and anteroseptal infarct age indeterminate. This was not present on the EKG from . The EKG from 2 days ago is not available. 03/29/19 06:46 03/29/19 06:47 Urine shows septic urine. Chest x-ray shows possibly consolidation in the left mid and lower lung. Patient is being hydrated he's received 1 L of IV normal saline. We started a second liter but have slowed that down to 250 mL per hour. I spoke with Dr. velazquez and and will just start him on Rocephin for now Dr. velazquez and will see him shortly. Departure - Departure Time of Disposition: 06:49 Disposition: Admitted As Inpatient 67 Condition: Serious Clinical Impression: Pneumonia, Urosepsis - Discharge Information Referrals: PCP,None [Primary Care Provider] - Forms: ED Department Discharge - My Orders Last 24 Hours: My Active Orders 03/29/19 05:20 CULTURE BLOOD [BC] Urgent 03/29/19 05:23 Saline Lock Insert [OM.PC] Urgent EKG 12 Lead [EK] Urgent 03/29/19 05:24 EKG Documentation Completion [RC] ASDIRECTED Sodium Chloride 0.9% [Saline Flush] 10 ml FLUSH ASDIRECTED PRN 03/29/19 05:27 CULTURE BLOOD [BC] Urgent 03/29/19 05:47 Blood Culture x2 Reflex Set [OM.PC] Urgent 03/29/19 06:31 cefTRIAXone [Rocephin] 2 gm Sodium Chloride 0.9% [Normal Saline] 50 ml IV ONETIME - Assessment/Plan Last 24 Hours: My Active Orders 03/29/19 05:20 CULTURE BLOOD [BC] Urgent 03/29/19 05:23 Saline Lock Insert [OM.PC] Urgent EKG 12 Lead [EK] Urgent 03/29/19 05:24 EKG Documentation Completion [RC] ASDIRECTED Sodium Chloride 0.9% [Saline Flush] 10 ml FLUSH ASDIRECTED PRN 03/29/19 05:27 CULTURE BLOOD [BC] Urgent 03/29/19 05:47 Blood Culture x2 Reflex Set [OM.PC] Urgent 03/29/19 06:31 cefTRIAXone [Rocephin] 2 gm Sodium Chloride 0.9% [Normal Saline] 50 ml IV ONETIME
--- NOTE | 2019-03-29 07:47 | PCM.HP ---
H&P History of Present Illness - General Date of Service: 03/29/19 Admit Problem/Dx: Admission Diagnosis/Problem Admission Diagnosis/Problem Cystitis Source of Information: Patient, Family, Provider, RN Notes Reviewed History Limitations: Reports: No Limitations - History of Present Illness Initial Comments - Free Text/Narative: Mr. Wolf is a 74-year-old gentleman who was admitted through the emergency department with weakness and fever secondary to urinary tract infection with sepsis. 6 days ago he underwent outpatient cardiac angiogram and stent placement. He was on his way home from having that done when he developed acute urinary retention. He stopped at the emergency department in [place] and a North catheter was placed. 2 days ago he did develop some recurrent chest pain and was seen and evaluated in the emergency department here. Evaluation was unremarkable for recurrent angina. He did well until early this morning when he woke up feeling extremely weak with shaking chills and fever. On evaluation in the emergency department was noted to have significant temperature elevation and tachycardia. White blood cell count was found to be elevated with a mild increase in lactic acid level. Urinalysis is grossly positive for infection, blood and urine cultures have been obtained. AP chest x- ray suggests possible infiltrate versus atelectasis left lung. He has received initial dose of Rocephin 2 g IV as well as vigorous IV fluid replacement per sepsis protocol. denies pain Pain Score (Numeric/FACES): 0 - Related Data Allergies/Adverse Reactions: Allergies Allergy/AdvReac Type Severity Reaction Status Date / Time No Known Allergies Allergy Verified 03/27/19 15:15 Home Medications: Home Meds Aspirin [Adult Low Dose Aspirin EC] 81 mg PO DAILY 05/13/14 [History] Multivitamin [Multi-Vitamin Daily] 0.5 tab PO BID 05/13/14 [History] Nitroglycerin [Nitrostat] 0.4 mg SL DAILY 05/13/14 [History] Diclofenac Sodium [Voltaren 1%] 1 applic TP QID PRN 10/27/15 [History] Naproxen Sodium 220 mg PO DAILY PRN 10/27/15 [History] Tamsulosin [Flomax] 0.4 mg PO BEDTIME 01/06/18 [History] Rosuvastatin [Crestor] 20 mg PO BEDTIME 06/12/18 [History] Sildenafil Citrate [Sildenafil] 20 - 60 mg PO ASDIRECTED PRN 06/12/18 [History] Clopidogrel [Plavix] 75 mg PO DAILY 03/27/19 [History] Past Medical History HEENT History: Reports: Cataract, Hard of Hearing, Other (See Below) Other HEENT History: bilateral hearing aides Cardiovascular History: Reports: Bypass, CAD, High Cholesterol, Stents, Other ( See Below) Other Cardiovascular History: x2 cardiac stents placed 03/23/19 [facility] Respiratory History: Reports: None Gastrointestinal History: Reports: None Genitourinary History: Reports: BPH, Prostate Disorder Musculoskeletal History: Reports: Back Pain, Chronic, Other (See Below) Other Musculoskeletal History: L hamstring strain Neurological History: Reports: None Psychiatric History: Reports: Anxiety Endocrine/Metabolic History: Reports: None Hematologic History: Reports: None Immunologic History: Reports: None Oncologic (Cancer) History: Reports: None Dermatologic History: Reports: None - Infectious Disease History Infectious Disease History: Reports: Chicken Pox, Measles - Past Surgical History Head Surgeries/Procedures: Reports: None HEENT Surgical History: Reports: Adenoidectomy, Cataract Surgery, Tonsillectomy , Other (See Below) Cardiovascular Surgical History: Reports: Coronary Artery Bypass, Coronary Artery Stent Male Surgical History: Reports: Prostate Biopsy Neurological Surgical History: Reports: Lumbar Spine Social & Family History - Family History Family Medical History: Noncontributory HEENT: Reports: None Other HEENT Family History: PT STATES HE KNOWS VERY LITTLE ABOUT HIS FAMILY MEDICAL HISTORY Cardiac: Reports: None Respiratory: Reports: COPD GI: Reports: GERD : Reports: None OBGYN: Reports: None Musculoskeletal: Reports: None Neurological: Reports: None Psychiatric: Reports: None Endocrine/Metabolic: Reports: None Hematologic: Reports: None Immunologic: Reports: None Dermatologic: Reports: None Oncologic: Reports: None - Tobacco Use Smoking Status *Q: Never Smoker - Caffeine Use Caffeine Use: Reports: Coffee - Recreational Drug Use Recreational Drug Use: No H&P Review of Systems - Review of Systems: Review Of Systems: See Below General: Reports: Fever, Chills, Malaise, Weakness, Decreased Appetite HEENT: Reports: No Symptoms Pulmonary: Reports: No Symptoms Cardiovascular: Reports: No Symptoms Gastrointestinal: Reports: No Symptoms Genitourinary: Reports: No Symptoms, Other (Indwelling North catheter) Musculoskeletal: Reports: No Symptoms Skin: Reports: No Symptoms Psychiatric: Reports: No Symptoms Neurological: Reports: No Symptoms Hematologic/Lymphatic: Reports: No Symptoms Immunologic: Reports: No Symptoms Exam - Exam Exam: See Below - Vital Signs Vital Signs: Last Vital Signs Temp 102.1 F H 03/29/19 07:21 Pulse 113 H 03/29/19 07:21 Resp 17 03/29/19 07:21 BP 130/62 03/29/19 07:21 Pulse Ox 94 L 03/29/19 07:21 Weight: 190 lb - Exam Quality Assessment: DVT Prophylaxis General: Alert, Oriented, Cooperative, Moderate Distress HEENT: Conjunctiva Clear, Hearing Intact, Mucosa Moist & [place], Normal Nasal Septum, Posterior Pharynx Clear, Pupils Equal Neck: Supple, Trachea Midline, +2 Carotid Pulse wo Bruit Lungs: Clear to Auscultation, Normal Respiratory Effort Cardiovascular: Regular Rate, Regular Rhythm, Normal S1, Normal S2. No: Systolic Murmur, Diastolic Murmur GI/Abdominal Exam: Soft, Non-Tender, No Organomegaly, No Distention Extremities: Non-Tender, No Pedal Edema Skin: Warm, Dry Neurological: Cranial Nerves Intact, Strength Equal Bilateral, Normal Speech, Normal Tone, Sensation Intact. No: Focal Deficit Neuro Extensive - Mental Status: Alert, Oriented x3, Normal Mood/Affect, Normal Cognition, Memory Intact - Patient Data Lab Results Last 24 hrs: Laboratory Results - last 24 hr 03/29/19 03/29/19 03/29/19 Range/Units 05:27 05:28 05:28 WBC 11.7 H (4.5-11.0) K/uL RBC 4.65 (4.30-5.90) M/uL Hgb 13.9 (12.0-15.0) g/dL Hct 41.0 (40.0-54.0) % MCV 88 (80-98) fL MCH 30 (27-31) pg MCHC 34 (32-36) % Plt Count 285 (150-400) K/uL Neut % (Auto) 88 H (36-66) % Lymph % (Auto) 7 L (24-44) % [place] % (Auto) 4 (2-6) % Eos % (Auto) 1 L (2-4) % Baso % (Auto) 0 (0-1) % Sodium 136 L (140-148) mmol/L Potassium 4.3 (3.6-5.2) mmol/L Chloride 101 (100-108) mmol/L Carbon Dioxide 23 (21-32) mmol/L Anion Gap 16.3 H (5.0-14.0) mmol/L BUN 19 H (7-18) mg/dL Creatinine 1.1 (0.8-1.3) mg/dL Est Cr Clr Drug Dosing 59.81 mL/min Estimated GFR (MDRD) > 60 (>60) Glucose 110 H (74-106) mg/dL Lactic Acid 2.5 H (0.4-2.0) mmol/L Calcium 9.5 (8.5-10.1) mg/dL Total Bilirubin 1.0 D (0.2-1.0) mg/dL AST 16 (15-37) U/L ALT 26 (12-78) U/L Alkaline Phosphatase 72 (46-116) U/L Troponin I (0.000-0.056) ng/mL Total Protein 7.3 (6.4-8.2) g/dL Albumin 3.6 (3.4-5.0) g/dL Globulin 3.7 H (2.3-3.5) g/dL Albumin/Globulin Ratio 1.0 L (1.2-2.2) Urine Color Urine Appearance Urine pH (4.5-8.0) Ur Specific [place] (1.008-1.030) Urine Protein (NEGATIVE) mg/dL Urine Glucose (UA) (NEGATIVE) mg/dL Urine Ketones (NEGATIVE) mg/dL Urine Occult Blood (NEGATIVE) Urine Nitrite (NEGAITVE) Urine Bilirubin (NEGATIVE) Urine Urobilinogen (NORMAL) mg/dL Ur Leukocyte Esterase (NEGATIVE) Urine RBC (0-5) Urine WBC (0-5) Ur Epithelial Cells Amorphous Sediment Urine Bacteria Urine Mucus 03/29/19 03/29/19 Range/Units 05:28 05:57 WBC (4.5-11.0) K/uL RBC (4.30-5.90) M/uL Hgb (12.0-15.0) g/dL Hct (40.0-54.0) % MCV (80-98) fL MCH (27-31) pg MCHC (32-36) % Plt Count (150-400) K/uL Neut % (Auto) (36-66) % Lymph % (Auto) (24-44) % [place] % (Auto) (2-6) % Eos % (Auto) (2-4) % Baso % (Auto) (0-1) % Sodium (140-148) mmol/L Potassium (3.6-5.2) mmol/L Chloride (100-108) mmol/L Carbon Dioxide (21-32) mmol/L Anion Gap (5.0-14.0) mmol/L BUN (7-18) mg/dL Creatinine (0.8-1.3) mg/dL Est Cr Clr Drug Dosing mL/min Estimated GFR (MDRD) (>60) Glucose (74-106) mg/dL Lactic Acid (0.4-2.0) mmol/L Calcium (8.5-10.1) mg/dL Total Bilirubin (0.2-1.0) mg/dL AST (15-37) U/L ALT (12-78) U/L Alkaline Phosphatase (46-116) U/L Troponin I 0.050 (0.000-0.056) ng/mL Total Protein (6.4-8.2) g/dL Albumin (3.4-5.0) g/dL Globulin (2.3-3.5) g/dL Albumin/Globulin Ratio (1.2-2.2) Urine Color Yellow Urine Appearance Cloudy Urine pH 8.0 (4.5-8.0) Ur Specific [place] 1.005 L (1.008-1.030) Urine Protein Trace (NEGATIVE) mg/dL Urine Glucose (UA) Normal (NEGATIVE) mg/dL Urine Ketones 15 H (NEGATIVE) mg/dL Urine Occult Blood Large (NEGATIVE) Urine Nitrite Positive H (NEGAITVE) Urine Bilirubin Negative (NEGATIVE) Urine Urobilinogen Normal (NORMAL) mg/dL Ur Leukocyte Esterase Large (NEGATIVE) Urine RBC Semi-packed H (0-5) Urine WBC Packed H (0-5) Ur Epithelial Cells Rare Amorphous Sediment Not seen Urine Bacteria Many Urine Mucus Not seen Result Diagrams: 03/29/19 05:28 03/29/19 05:28 *Q Meaningful Use (ADM) - VTE Risk Assess *Q Each Risk Factor Represents 1 Point: Obesity ( BMI > 25 kg/m2), Sepsis Total Score 1 Point Risk Factors: 2 Each Risk Factor Represents 2 Points: Age 60 - 74 Years Total Score 2 Point Risk Factors: 2 Each Risk Factor Represents 3 Points: None Total Score 3 Point Risk Factors: 0 Each Risk Factor Represents 5 Points: None Total Score 5 Point Risk Factors: 0 Venous Thromboembolism Risk Factor Score *Q: 4 Problem List Initiated/Reviewed/Updated: Yes Orders Last 24hrs: Active Orders 24 hr Category Date Time Status Patient Status Manage Transfer [TRANSFER] Routine ADT 03/29/19 07:35 Active EKG Documentation Completion [RC] ASDIRECTED Care 03/29/19 05:24 Active Chest 2V [CR] Stat Exams 03/29/19 07:42 Ordered CULTURE BLOOD [BC] Urgent Lab 03/29/19 05:20 Received CULTURE BLOOD [BC] Urgent Lab 03/29/19 05:27 Received CULTURE URINE [RM] Stat Lab 03/29/19 07:42 Ordered Sodium Chloride 0.9% [Normal Saline] 1,000 ml Med 03/29/19 06:10 Active IV ASDIRECTED Sodium Chloride 0.9% [Normal Saline] 1,000 ml Med 03/29/19 05:10 Active IV BOLUS Sodium Chloride 0.9% [Saline Flush] Med 03/29/19 05:24 Active 10 ml FLUSH ASDIRECTED PRN Blood Culture x2 Reflex Set [OM.PC] Urgent Oth 03/29/19 05:47 Ordered Saline Lock Insert [OM.PC] Urgent Oth 03/29/19 05:23 Ordered Resuscitation Status Routine Resus Stat 03/29/19 07:37 Ordered EKG 12 Lead [EK] Urgent Ther 03/29/19 05:23 Ordered Medication Orders Sodium Chloride (Normal Saline) 1,000 mls @ 999 mls/hr IV BOLUS CORY Last Admin: 03/29/19 05:10 Dose: 999 mls/hr Sodium Chloride (Normal Saline) 1,000 mls @ 250 mls/hr IV ASDIRECTED CORY Last Admin: 03/29/19 06:10 Dose: 250 mls/hr Sodium Chloride (Saline Flush) 10 ml FLUSH ASDIRECTED PRN PRN Reason: Keep Vein Open Last Admin: 03/29/19 07:02 Dose: 10 ml Assessment/Plan Comment:: ASSESSMENT AND PLAN URINARY TRACT INFECTION WITH SEPSIS-likely secondary to underlying indwelling North catheter. Catheter was placed 6 days ago because of urinary retention. Abrupt onset of symptoms earlier this morning with evidence of sepsis on evaluation in the emergency department. There was question on initial chest x- ray possible left lung infiltrate. PA and lateral chest x-ray was obtained showing no evidence of pneumonia, but did document bilateral atelectasis. -Blood and sputum cultures pending -IV fluids given per sepsis protocol -Follow up lactic acid level -IV Rocephin pending culture results CORONARY ARTERY DISEASE-status post angioplasty with stent placement done 6 days ago, currently asymptomatic. -Continue outpatient medical regimen URINARY RETENTION-likely secondary to BPH, currently on Flomax. -Continue indwelling North catheter -Outpatient follow-up with urology scheduled for April 01. MAINTENANCE ISSUES -DVT prophylaxis; Lovenox 40 mg subcutaneous daily -GI prophylaxis; not indicated -North catheter; indwelling North catheter because of urinary retention -Nutrition; regular diet -Nicotine dependence; not required CODE STATUS-FULL CODE ADMISSION STATUS-patient will be admitted to inpatient status, expect at least a 2 night hospital stay for evaluation and management of problems as outlined above. At the time of this admission I do not reasonably expected evaluation and management of this problem will require more than a 96 hour hospital stay. DISPOSITION-anticipate discharge to home after the hospital stay. PRIMARY CARE PROVIDER-
--- NOTE | 2019-03-29 08:24 | CRLCR ---
INDICATION: Lung infiltrate. COMPARISON: 03/29/2019 at 5:57. FINDINGS: Heart size is within normal limits. There is some mild atelectasis in lung bases. No significant consolidation is seen. No pleural fluid is seen. No significant pulmonary edema is seen. IMPRESSION: Atelectasis lung bases noted. No significant infiltrate/consolidation is seen. No evidence for pulmonary edema. Dictated by Twan Dailey MD @ Mar 29 2019 8:20AM Signed by Dr. Twan Dailey @ Mar 29 2019 8:23AM
[2019-03-29] MEDS ORDERED: Polyethylene Glycol 3350 Powder 17 GM Packet PO PRN (09:22)
[2019-03-29] MEDS ORDERED: Albuterol 0.083% 2.5 MG/3 ML Neb Soln NEB PRN (09:22)
[2019-03-29] MEDS ORDERED: Ondansetron 4 MG/2 ML SDV IV PRN (09:22)
[2019-03-29] MEDS: Aspirin 81 MG Tab.EC PO SCH (10:07)
[2019-03-29] MEDS: Clopidogrel 75 MG Tab PO SCH (10:07)
[2019-03-29] MEDS: Enoxaparin 40 MG/0.4 ML Syringe SUBCUT SCH (10:08)
[2019-03-29] MEDS: Lactated Ringers 1,000 ML IV SCH ×2 (10:08→19:31)
[2019-03-29] MEDS ORDERED: Lactated Ringers 1,000 ML IV ONE (11:35)
[2019-03-29] MEDS: Acetaminophen 325 MG Tab PO PRN ×2 (15:17→21:09)
[2019-03-29] MEDS ORDERED: [UNRECOGNIZED DRUG - OTHER] OT SCH (21:00)
[2019-03-29] MEDS ORDERED: DEXAMETHASONE OT SCH (21:00)
[2019-03-29] MEDS ORDERED: CIPROFLOXACIN OT SCH (21:00)
[2019-03-29] MEDS: Rosuvastatin 10 MG Tab PO SCH (21:08)
[2019-03-29] MEDS: Oxybutynin 5 MG Tab PO SCH (21:08)
[2019-03-29] MEDS: Tamsulosin 0.4 MG Cap.ER PO SCH (21:08)
[2019-03-30] MEDS: Lactated Ringers 1,000 ML IV SCH (03:28)
[2019-03-30] MEDS: cefTRIAXone 1 GM in Sodium Chloride 0.9% 50 ML IV SCH (05:38)
[2019-03-30] MEDS: Acetaminophen 325 MG Tab PO PRN ×2 (07:40→17:00)
[2019-03-30] MEDS: Clopidogrel 75 MG Tab PO SCH (08:09)
[2019-03-30] MEDS: Aspirin 81 MG Tab.EC PO SCH (08:09)
[2019-03-30] MEDS: Oxybutynin 5 MG Tab PO SCH ×2 (08:09→21:03)
[2019-03-30] MEDS: Enoxaparin 40 MG/0.4 ML Syringe SUBCUT SCH (08:09)
[2019-03-30] MEDS: Loratadine 10 MG Tab PO SCH (08:09)
[2019-03-30] MEDS ORDERED: Potassium Chloride 20 MEQ Tab.ER PO ONE (08:30)
[2019-03-30] MEDS: Magnesium Sulfate/Water 2 GM in Premix Bag 1 BAG IV SCH ×2 (08:49→15:02)
--- NOTE | 2019-03-30 08:51 | PCM.PN ---
- General Info Date of Service: 03/30/19 Subjective Update: There were no acute events overnight. Patient did have a fever with a MAXIMUM TEMPERATURE of 38C. He says that he feels fairly well today. He was able to get up and do some walking. No complaints of shortness of breath, abdominal pain. Appetite was good this morning. His urine culture and one blood culture are growing gram-negative rods with identification pending. Vital signs have been stable. Functional Status: Reports: Pain Controlled, Tolerating Diet, Ambulating - Review of Systems General: Reports: Fever, Weakness - Patient Data Vitals - Most Recent: Last Vital Signs Temp 37.2 C 03/30/19 08:00 Pulse 69 03/30/19 08:00 Resp 26 H 03/30/19 08:00 BP 116/67 03/30/19 08:00 Pulse Ox 96 03/30/19 08:00 Weight - Most Recent: 88.507 kg I&O - Last 24 Hours: Intake & Output 03/29/19 03/30/19 03/30/19 22:59 06:59 14:59 Intake Total 2151 1999 Output Total 1400 325 Balance 2151 599 -325 Lab Results Last 24 Hours: Laboratory Results - last 24 hr 03/29/19 03/30/19 03/30/19 Range/Units 11:00 05:51 05:51 WBC 18.0 H (4.5-11.0) K/uL RBC 3.95 L (4.30-5.90) M/uL Hgb 11.8 L D (12.0-15.0) g/dL Hct 35.6 L (40.0-54.0) % MCV 90 (80-98) fL MCH 30 (27-31) pg MCHC 33 (32-36) % Plt Count 203 (150-400) K/uL Neut % (Auto) Home Assessment Nurse Lymph % (Auto) Home Assessment Nurse [place] % (Auto) Home Assessment Nurse Eos % (Auto) Home Assessment Nurse Baso % (Auto) Home Assessment Nurse Add Manual Diff Yes Neutrophils % (Manual) 71 H (36-66) % Band Neutrophils % 18 H (5-11) % Lymphocytes % (Manual) 3 L (24-44) % Monocytes % (Manual) 8 H (2-6) % Anisocytosis Moderate H Sodium 140 (140-148) mmol/L Potassium 3.6 (3.6-5.2) mmol/L Chloride 110 H (100-108) mmol/L Carbon Dioxide 21 (21-32) mmol/L Anion Gap 12.6 (5.0-14.0) mmol/L BUN 15 (7-18) mg/dL Creatinine 0.9 (0.8-1.3) mg/dL Est Cr Clr Drug Dosing 73.10 mL/min Estimated GFR (MDRD) > 60 (>60) Glucose 105 (74-106) mg/dL Lactic Acid 1.2 (0.4-2.0) mmol/L Calcium 8.3 L (8.5-10.1) mg/dL Magnesium 1.5 L (1.8-2.4) mg/dL Siddhartha Results Last 24 Hours: Microbiology 03/29/19 05:20 Aerobic Blood Culture - Preliminary Blood - Venous - Iv Start NO GROWTH AFTER 1 DAY Anaerobic Blood Culture - Preliminary Gram Negative Rods 03/29/19 05:27 Aerobic Blood Culture - Preliminary Blood - Arm, Right Anaerobic Blood Culture - Preliminary NO GROWTH AFTER 1 DAY 03/29/19 07:48 Urine Culture - Preliminary Urine, North Cath (Indwelling) Med Orders - Current: Current Medications Acetaminophen (Tylenol) 650 mg PO Q4H PRN PRN Reason: Pain (Mild 1-3)/fever Last Admin: 03/30/19 07:40 Dose: 650 mg Albuterol (Proventil Neb Soln) 2.5 mg NEB Q4H PRN PRN Reason: Shortness Of Breath/wheezing Aspirin (Halfprin) 81 mg PO DAILY [facility] Last Admin: 03/30/19 08:09 Dose: 81 mg Clopidogrel Bisulfate (Plavix) 75 mg PO DAILY [facility] Last Admin: 03/30/19 08:09 Dose: 75 mg Enoxaparin Sodium (Lovenox) 40 mg SUBCUT DAILY [facility] Last Admin: 03/30/19 08:09 Dose: 40 mg Ceftriaxone Sodium 1 gm/ (Sodium Chloride) 50 mls @ 100 mls/hr IV Q24H [facility] Last Admin: 03/30/19 05:38 Dose: 100 mls/hr Magnesium Sulfate 2 gm/ Premix 50 mls @ 25 mls/hr IV Q6H [facility] Stop: 03/30/19 16:59 Last Admin: 03/30/19 08:49 Dose: 25 mls/hr Lactated Ringer's (Ringers, Lactated) 1,000 mls @ 25 mls/hr IV ASDIRECTED [facility] Loratadine (Claritin) 10 mg PO DAILY [facility] Last Admin: 03/30/19 08:09 Dose: 10 mg Ondansetron HCl (Zofran) 4 mg IV Q4H PRN PRN Reason: Nausea/Vomiting Oxybutynin Chloride (Oxybutynin) 5 mg PO BID [facility] Last Admin: 03/30/19 08:09 Dose: 5 mg Polyethylene Glycol (Miralax) 17 gm PO DAILY PRN PRN Reason: Constipation Rosuvastatin Calcium (Crestor) 20 mg PO BEDTIME [facility] Last Admin: 03/29/19 21:08 Dose: 20 mg Sodium Chloride (Saline Flush) 10 ml FLUSH ASDIRECTED PRN PRN Reason: Keep Vein Open Tamsulosin HCl (Flomax) 0.4 mg PO BEDTIME [facility] Last Admin: 03/29/19 21:08 Dose: 0.4 mg Discontinued Medications Acetaminophen (Tylenol Extra Strength) 1,000 mg PO ONETIME ONE Stop: 03/29/19 05:25 Last Admin: 03/29/19 05:38 Dose: 1,000 mg Ceftriaxone Sodium 2 gm/ (Sodium Chloride) 50 mls @ 100 mls/hr IV ONETIME ONE Stop: 03/29/19 07:00 Last Admin: 03/29/19 06:44 Dose: 100 mls/hr Sodium Chloride (Normal Saline) 1,000 mls @ 999 mls/hr IV .BOLUS ONE Stop: 03/29/19 06:10 Last Admin: 03/29/19 05:10 Dose: 999 mls/hr Sodium Chloride (Normal Saline) 1,000 mls @ 999 mls/hr IV BOLUS [facility] Last Admin: 03/29/19 05:10 Dose: 999 mls/hr Sodium Chloride (Normal Saline) 1,000 mls @ 250 mls/hr IV ASDIRECTED [facility] Last Admin: 03/29/19 06:10 Dose: 250 mls/hr Lactated Ringer's (Ringers, Lactated) 1,000 mls @ 125 mls/hr IV ASDIRECTED [facility] Last Admin: 03/30/19 03:28 Dose: 125 mls/hr Lactated Ringer's (Ringers, Lactated) 1,000 mls @ 500 mls/hr IV BOLUS ONE Stop: 03/29/19 13:34 Last Admin: 03/29/19 11:35 Dose: 500 mls/hr Lidocaine HCl (Xylocaine 2% Jelly) 10 ml MUCMEM ONETIME ONE Stop: 03/29/19 05:35 Last Admin: 03/29/19 05:38 Dose: 10 ml Potassium Chloride (Klor-Con M20) 40 meq PO ONETIME ONE Stop: 03/30/19 08:31 Last Admin: 03/30/19 08:48 Dose: 40 meq Sodium Chloride (Saline Flush) 10 ml FLUSH ASDIRECTED PRN PRN Reason: Keep Vein Open Last Admin: 03/29/19 07:02 Dose: 10 ml - Exam Quality Assessment: No: Supplemental Oxygen General: Alert, Oriented, Cooperative, No Acute Distress Lungs: Normal Respiratory Effort Cardiovascular: Regular Rate, Regular Rhythm GI/Abdominal Exam: Soft, No Distention Extremities: No Pedal Edema Psy/Mental Status: Alert, Normal Affect - Problem List Review Problem List Initiated/Reviewed/Updated: Yes - My Orders Last 24 Hours: My Active Orders 03/30/19 08:49 Transfer Patient (Change bed) [ADT] Routine 03/30/19 08:50 Discontinue Telemetry Monitoring [Cardiac Monitoring Discontinue] [RC] Click to Edit 03/30/19 09:00 Lactated Ringers [Ringers, Lactated] 1,000 ml IV ASDIRECTED Magnesium Sulfate/Water [Magnesium Sulfate in Water Premix] 2 gm Premix Bag 1 bag IV Q6H 03/31/19 05:00 BASIC METABOLIC PANEL,BMP [CHEM] Timed CBC W/O DIFF,HEMOGRAM [HEME] Timed (1) - Plan Plan:: ASSESSMENT AND PLAN URINARY TRACT INFECTION WITH SEPSIS - likely secondary to underlying indwelling North catheter. Sepsis has resolved. Urine culture and one blood culture growing gram-negative rods with identification pending. Clinically stable. -Continue ceftriaxone -IV fluids at TKO -Follow-up culture results CORONARY ARTERY DISEASE - status post angioplasty with stent placement done 03/23 , currently asymptomatic. -Continue outpatient medical regimen ACUTE URINARY RETENTION - likely secondary to BPH, currently on tamsulosin. -Continue indwelling North catheter -Outpatient follow-up with urology scheduled for Saturday, April 01. -Continue tamsulosin MAINTENANCE ISSUES -DVT prophylaxis; Lovenox 40 mg subcutaneous daily -GI prophylaxis; not indicated -North catheter; indwelling North catheter because of urinary retention -Nutrition; regular diet DISPOSITION - anticipate discharge to home after the hospital stay. Sp Taylor M.D.
[2019-03-30] MEDS ORDERED: Lactated Ringers 1,000 ML IV SCH (09:00)
[2019-03-30] MEDS: Rosuvastatin 10 MG Tab PO SCH (21:03)
[2019-03-30] MEDS: Tamsulosin 0.4 MG Cap.ER PO SCH (21:03)
[2019-03-31] MEDS: Acetaminophen 325 MG Tab PO PRN ×2 (03:23→17:41)
[2019-03-31] MEDS: cefTRIAXone 1 GM in Sodium Chloride 0.9% 50 ML IV SCH (05:17)
[2019-03-31] MEDS: Enoxaparin 40 MG/0.4 ML Syringe SUBCUT SCH (08:45)
[2019-03-31] MEDS: Oxybutynin 5 MG Tab PO SCH ×2 (08:46→21:47)
[2019-03-31] MEDS: Aspirin 81 MG Tab.EC PO SCH (08:46)
[2019-03-31] MEDS: Clopidogrel 75 MG Tab PO SCH (08:47)
[2019-03-31] MEDS: Loratadine 10 MG Tab PO SCH (08:47)
--- NOTE | 2019-03-31 12:42 | PCM.PN ---
- General Info Date of Service: 03/31/19 Subjective Update: There were no acute events overnight. The patient did have a fever to greater than 101. He feels a little weak and a little tired today but otherwise feels well. No complaints of abdominal pain. Catheter seems to be functioning well. Appetite has been good. Urine culture and blood cultures are growing Escherichia coli which is nearly pansensitive. Functional Status: Reports: Pain Controlled, Tolerating Diet - Review of Systems General: Reports: Fever, Weakness, Fatigue Gastrointestinal: Denies: Abdominal Pain - Patient Data Vitals - Most Recent: Last Vital Signs Temp 37.4 C 03/31/19 11:31 Pulse 63 03/31/19 11:31 Resp 15 03/31/19 11:31 BP 126/71 03/31/19 11:31 Pulse Ox 96 03/31/19 11:31 Weight - Most Recent: 88.507 kg I&O - Last 24 Hours: Intake & Output 03/30/19 03/31/19 03/31/19 22:59 06:59 14:59 Intake Total 864 646 480 Output Total 1280 1550 1275 Balance -079 -356 -037 Lab Results Last 24 Hours: Laboratory Results - last 24 hr 03/31/19 03/31/19 Range/Units 05:10 05:10 WBC 16.4 H (4.5-11.0) K/uL RBC 4.06 L (4.30-5.90) M/uL Hgb 12.2 (12.0-15.0) g/dL Hct 36.3 L (40.0-54.0) % MCV 89 (80-98) fL MCH 30 (27-31) pg MCHC 34 (32-36) % Plt Count 202 (150-400) K/uL Sodium 140 (140-148) mmol/L Potassium 3.9 (3.6-5.2) mmol/L Chloride 109 H (100-108) mmol/L Carbon Dioxide 24 (21-32) mmol/L Anion Gap 10.9 (5.0-14.0) mmol/L BUN 17 (7-18) mg/dL Creatinine 1.0 (0.8-1.3) mg/dL Est Cr Clr Drug Dosing 65.57 mL/min Estimated GFR (MDRD) > 60 (>60) Glucose 108 H (74-106) mg/dL Calcium 8.5 (8.5-10.1) mg/dL Siddhartha Results Last 24 Hours: Microbiology 03/29/19 05:20 Aerobic Blood Culture - Preliminary Blood - Venous - Iv Start NO GROWTH AFTER 2 DAYS Anaerobic Blood Culture - Final Escherichia Coli 03/29/19 05:27 Aerobic Blood Culture - Final Blood - Arm, Right Escherichia Coli Anaerobic Blood Culture - Preliminary NO GROWTH AFTER 2 DAYS 03/29/19 07:48 Urine Culture - Final Urine, North Cath (Indwelling) Escherichia Coli Med Orders - Current: Current Medications Acetaminophen (Tylenol) 650 mg PO Q4H PRN PRN Reason: Pain (Mild 1-3)/fever Last Admin: 03/31/19 03:23 Dose: 650 mg Albuterol (Proventil Neb Soln) 2.5 mg NEB Q4H PRN PRN Reason: Shortness Of Breath/wheezing Aspirin (Halfprin) 81 mg PO DAILY [facility] Last Admin: 03/31/19 08:46 Dose: 81 mg Clopidogrel Bisulfate (Plavix) 75 mg PO DAILY [facility] Last Admin: 03/31/19 08:47 Dose: 75 mg Enoxaparin Sodium (Lovenox) 40 mg SUBCUT DAILY [facility] Last Admin: 03/31/19 08:45 Dose: 40 mg Ceftriaxone Sodium 1 gm/ (Sodium Chloride) 50 mls @ 100 mls/hr IV Q24H [facility] Last Admin: 03/31/19 05:17 Dose: 100 mls/hr Lactated Ringer's (Ringers, Lactated) 1,000 mls @ 25 mls/hr IV ASDIRECTED [facility] Last Admin: 03/31/19 04:21 Dose: 25 mls/hr Loratadine (Claritin) 10 mg PO DAILY [facility] Last Admin: 03/31/19 08:47 Dose: 10 mg Ondansetron HCl (Zofran) 4 mg IV Q4H PRN PRN Reason: Nausea/Vomiting Oxybutynin Chloride (Oxybutynin) 5 mg PO BID [facility] Last Admin: 03/31/19 08:46 Dose: 5 mg Polyethylene Glycol (Miralax) 17 gm PO DAILY PRN PRN Reason: Constipation Rosuvastatin Calcium (Crestor) 20 mg PO BEDTIME [facility] Last Admin: 03/30/19 21:03 Dose: 20 mg Sodium Chloride (Saline Flush) 10 ml FLUSH ASDIRECTED PRN PRN Reason: Keep Vein Open Tamsulosin HCl (Flomax) 0.4 mg PO BEDTIME [facility] Last Admin: 03/30/19 21:03 Dose: 0.4 mg Discontinued Medications Acetaminophen (Tylenol Extra Strength) 1,000 mg PO ONETIME ONE Stop: 03/29/19 05:25 Last Admin: 03/29/19 05:38 Dose: 1,000 mg Ceftriaxone Sodium 2 gm/ (Sodium Chloride) 50 mls @ 100 mls/hr IV ONETIME ONE Stop: 03/29/19 07:00 Last Admin: 03/29/19 06:44 Dose: 100 mls/hr Sodium Chloride (Normal Saline) 1,000 mls @ 999 mls/hr IV .BOLUS ONE Stop: 03/29/19 06:10 Last Admin: 03/29/19 05:10 Dose: 999 mls/hr Sodium Chloride (Normal Saline) 1,000 mls @ 999 mls/hr IV BOLUS [facility] Last Admin: 03/29/19 05:10 Dose: 999 mls/hr Sodium Chloride (Normal Saline) 1,000 mls @ 250 mls/hr IV ASDIRECTED [facility] Last Admin: 03/29/19 06:10 Dose: 250 mls/hr Lactated Ringer's (Ringers, Lactated) 1,000 mls @ 125 mls/hr IV ASDIRECTED [facility] Last Admin: 03/30/19 03:28 Dose: 125 mls/hr Lactated Ringer's (Ringers, Lactated) 1,000 mls @ 500 mls/hr IV BOLUS ONE Stop: 03/29/19 13:34 Last Admin: 03/29/19 11:35 Dose: 500 mls/hr Magnesium Sulfate 2 gm/ Premix 50 mls @ 25 mls/hr IV Q6H [facility] Stop: 03/30/19 16:59 Last Admin: 03/30/19 15:02 Dose: 25 mls/hr Lidocaine HCl (Xylocaine 2% Jelly) 10 ml MUCMEM ONETIME ONE Stop: 03/29/19 05:35 Last Admin: 03/29/19 05:38 Dose: 10 ml Potassium Chloride (Klor-Con M20) 40 meq PO ONETIME ONE Stop: 03/30/19 08:31 Last Admin: 03/30/19 08:48 Dose: 40 meq Sodium Chloride (Saline Flush) 10 ml FLUSH ASDIRECTED PRN PRN Reason: Keep Vein Open Last Admin: 03/29/19 07:02 Dose: 10 ml - Exam Quality Assessment: No: Supplemental Oxygen General: Alert, Oriented, Cooperative, No Acute Distress Lungs: Normal Respiratory Effort Cardiovascular: Regular Rate, Regular Rhythm GI/Abdominal Exam: Soft, No Distention Extremities: No Pedal Edema Psy/Mental Status: Alert, Normal Affect - Problem List Review Problem List Initiated/Reviewed/Updated: Yes - My Orders Last 24 Hours: My Active Orders 03/31/19 12:41 Convert IV to Saline Lock [OM.PC] Routine 04/01/19 05:00 BASIC METABOLIC PANEL,BMP [CHEM] Timed CBC W/O DIFF,HEMOGRAM [HEME] Timed (1) 04/01/19 09:00 Ciprofloxacin [Ciprofloxacin HCl] 500 mg PO BID - Plan Plan:: ASSESSMENT AND PLAN URINARY TRACT INFECTION WITH SEPSIS - likely secondary to underlying indwelling North catheter. Sepsis has resolved. Urine culture and blood cultures are growing Escherichia coli. He did have a fever last night. Plan to keep him one more night with the high fever last night. -Saline lock IV -Transition antibiotics to ciprofloxacin CORONARY ARTERY DISEASE - status post angioplasty with stent placement done 03/23 , currently asymptomatic. -Continue outpatient medical regimen ACUTE URINARY RETENTION - likely secondary to BPH, currently on tamsulosin. -Continue indwelling North catheter -Outpatient follow-up with urology scheduled for April 01. -Continue tamsulosin MAINTENANCE ISSUES -DVT prophylaxis; patient is now ambulatory -GI prophylaxis; not indicated -North catheter; indwelling North catheter because of urinary retention -Nutrition; regular diet DISPOSITION - anticipate discharge to home tomorrow morning if stable overnight Sp Taylor M.D.
[2019-03-31] MEDS: Tamsulosin 0.4 MG Cap.ER PO SCH (21:46)
[2019-03-31] MEDS: Rosuvastatin 10 MG Tab PO SCH (21:48)
[2019-04-01 07:19] VITALS: BP 127/75
[2019-04-01] MEDS ORDERED: Ciprofloxacin 500 MG Tab PO SCH (07:30)
--- NOTE | 2019-04-01 08:49 | PCM.DCSUM1 ---
Discharge Summary - Hospital Course Brief History: 74-year-old male with coronary artery disease and recent stenting as well as acute urinary retention necessitating indwelling North catheter placement about one week ago who presented with fevers and weakness. He was admitted for management of a complicated urinary tract infection and sepsis. Diagnosis: Stroke: No - Discharge Data Discharge Date: 04/01/19 Discharge Disposition: Home, Self-Care 01 Condition: Good - Discharge Diagnosis/Problem(s) (1) Complicated urinary tract infection SNOMED Code(s): 92732403 ICD Code: N39.0 - URINARY TRACT INFECTION, SITE NOT SPECIFIED Status: Acute Current Visit: Yes (2) Sepsis SNOMED Code(s): 74358907 ICD Code: A41.9 - SEPSIS, UNSPECIFIED ORGANISM Status: Acute Current Visit: Yes Qualifiers: Sepsis type: Escherichia coli Qualified Code(s): A41.51 - Sepsis due to Escherichia coli [E. coli] (3) Acute urinary retention SNOMED Code(s): 033182300 ICD Code: R33.8 - OTHER RETENTION OF URINE Status: Acute Current Visit: Yes - Patient Summary/Data Hospital Course: Don presented to the emergency room with acute onset of weakness, fevers and shaking chills. Workup in the emergency room was suggestive of a complicated urinary tract infection and sepsis. He had tachycardia and elevated lactic acid in addition to his weakness. Cultures were obtained and he received aggressive IV fluid replacement as well as broad-spectrum antibiotics aimed towards a urinary tract infection. It is noted that he had a indwelling catheter placed about one week ago to manage urinary retention following an angiogram. He was admitted to the hospital for further management. Overnight following admission he had normalization of his lactic acid. His tachycardia resolved. The morning after admission he remains very weak but otherwise has been stable. Antibiotics and gentle IV fluids were continued and the patient had further improvement in his clinical status. Initially his white blood cell count was normal but then jumped up to 18,000 before going down to 16,000 and then normalizing on the day of discharge. His urine culture and blood cultures ended up growing out Escherichia coli which was nearly pansensitive. His fever curve has improved steadily throughout the hospital stay but he did still have a low-grade temperature elevation the night before hospital discharge. He is feeling much better with improvement in his strength and appetite. He was able to get up and walk around more and more as the hospital stay progressed. He has been transitioned to oral antibiotics with ciprofloxacin and has continued to do well. The plan is for him to be discharged to home with 6 and half additional days of antibiotic therapy. He has an appointment with the urologist this afternoon and will be discussing whether or not the North catheter can be removed. He has follow-up with primary care next week. - Patient Instructions Diet: Regular Diet as Tolerated Activity: As Tolerated Driving: May Drive Today Showering/Bathing: May Shower Notify Provider of: Fever, Increased Pain, Nausea and/or Vomiting Other/Special Instructions: 1. You were in the hospital for management of a complicated urinary tract infection with sepsis. Your urine culture grew out Escherichia coli. I suspect that the infection was related to your indwelling catheter. I do recommend additional antibiotic therapy. You should take ciprofloxacin 500 mg twice daily for 13 more doses. Your next dose is due tonight. Please follow-up as scheduled with the urologist today. 2. Continue your other home medications as previously prescribed. 3. Follow up next week with Dayo Mcguire. 4. Seek medical attention if you fever greater than 101, severe abdominal pain, or if you are unable to pass urine if the North catheter is removed - Discharge Plan *PRESCRIPTION DRUG MONITORING PROGRAM REVIEWED*: Not Applicable *COPY OF PRESCRIPTION DRUG MONITORING REPORT IN PATIENT NEELA: Not Applicable Prescriptions/Med Rec: Ciprofloxacin [Ciprofloxacin HCl] 500 mg PO BIDAC #13 tablet Home Medications: Home Meds Aspirin [Adult Low Dose Aspirin EC] 81 mg PO DAILY 05/13/14 [History] Multivitamin [Multi-Vitamin Daily] 0.5 tab PO BID 05/13/14 [History] Nitroglycerin [Nitrostat] 0.4 mg SL DAILY 05/13/14 [History] Diclofenac Sodium [Voltaren 1% Gel] 1 applic TP QID PRN 10/27/15 [History] Tamsulosin [Flomax] 0.4 mg PO BEDTIME 01/06/18 [History] Rosuvastatin [Crestor] 20 mg PO BEDTIME 06/12/18 [History] Clopidogrel [Plavix] 75 mg PO DAILY 03/27/19 [History] Calcium Carbonate/Vitamin D3 [Calcium Carb 500 MG] 600 mg PO DAILY 03/29/19 [ History] Ciclopirox 1 applic TOP DAILY 03/29/19 [History] Ciprofloxacin/Dexamethasone [Ciprodex Otic Susp] 4 drop OT BID 03/29/19 [History ] Loratadine 10 mg PO DAILY 03/29/19 [History] Oxybutynin 5 mg PO BID 03/29/19 [History] Ciprofloxacin [Ciprofloxacin HCl] 500 mg PO BIDAC #13 tablet 04/01/19 [Rx] Oxygen Therapy Mode: Room Air Patient Handouts: Urinary Tract Infection, Adult, Ciprofloxacin tablets Referrals: PCP,None [Primary Care Provider] - 04/08/19 1:00 pm Dayo Mcguire NP [Nurse Practitioner] - - Discharge Summary/Plan Comment DC Time >30 min.: No - Patient Data Vitals - Most Recent: Last Vital Signs Temp 37.1 C 04/01/19 07:17 Pulse 66 04/01/19 07:17 Resp 16 04/01/19 07:17 BP 127/75 04/01/19 07:17 Pulse Ox 94 L 04/01/19 07:17 Weight - Most Recent: 88.507 kg I&O - Last 24 hours: Intake & Output 03/31/19 04/01/19 04/01/19 22:59 06:59 14:59 Intake Total 652 120 Output Total 1750 2000 Balance -1098 -2000 120 Lab Results - Last 24 hrs: Laboratory Results - last 24 hr 04/01/19 04/01/19 Range/Units 04:25 04:25 WBC 10.5 (4.5-11.0) K/uL RBC 4.22 L (4.30-5.90) M/uL Hgb 12.2 (12.0-15.0) g/dL Hct 37.4 L (40.0-54.0) % MCV 89 (80-98) fL MCH 29 (27-31) pg MCHC 33 (32-36) % Plt Count 227 (150-400) K/uL Sodium 140 (140-148) mmol/L Potassium 4.0 (3.6-5.2) mmol/L Chloride 107 (100-108) mmol/L Carbon Dioxide 23 (21-32) mmol/L Anion Gap 10.4 (5.0-14.0) mmol/L BUN 16 (7-18) mg/dL Creatinine 1.0 (0.8-1.3) mg/dL Est Cr Clr Drug Dosing 65.57 mL/min Estimated GFR (MDRD) > 60 (>60) Glucose 94 (74-106) mg/dL Calcium 8.8 (8.5-10.1) mg/dL CASANDRA Results - Last 24 hrs: Microbiology 03/29/19 05:20 Aerobic Blood Culture - Preliminary Blood - Venous - Iv Start NO GROWTH AFTER 3 DAYS Anaerobic Blood Culture - Final Escherichia Coli 03/29/19 05:27 Aerobic Blood Culture - Final Blood - Arm, Right Escherichia Coli Anaerobic Blood Culture - Preliminary NO GROWTH AFTER 3 DAYS 03/29/19 07:48 Urine Culture - Final Urine, North Cath (Indwelling) Escherichia Coli Med Orders - Current: Current Medications Acetaminophen (Tylenol) 650 mg PO Q4H PRN PRN Reason: Pain (Mild 1-3)/fever Last Admin: 03/31/19 17:41 Dose: 650 mg Albuterol (Proventil Neb Soln) 2.5 mg NEB Q4H PRN PRN Reason: Shortness Of Breath/wheezing Aspirin (Halfprin) 81 mg PO DAILY [facility] Last Admin: 03/31/19 08:46 Dose: 81 mg Ciprofloxacin (Ciprofloxacin Hcl) 500 mg PO BIDAC [facility] Last Admin: 04/01/19 07:24 Dose: 500 mg Clopidogrel Bisulfate (Plavix) 75 mg PO DAILY [facility] Last Admin: 03/31/19 08:47 Dose: 75 mg Loratadine (Claritin) 10 mg PO DAILY [facility] Last Admin: 03/31/19 08:47 Dose: 10 mg Ondansetron HCl (Zofran) 4 mg IV Q4H PRN PRN Reason: Nausea/Vomiting Oxybutynin Chloride (Oxybutynin) 5 mg PO BID [facility] Last Admin: 03/31/19 21:47 Dose: 5 mg Polyethylene Glycol (Miralax) 17 gm PO DAILY PRN PRN Reason: Constipation Rosuvastatin Calcium (Crestor) 20 mg PO BEDTIME [facility] Last Admin: 03/31/19 21:48 Dose: 20 mg Sodium Chloride (Saline Flush) 10 ml FLUSH ASDIRECTED PRN PRN Reason: Keep Vein Open Tamsulosin HCl (Flomax) 0.4 mg PO BEDTIME [facility] Last Admin: 03/31/19 21:46 Dose: 0.4 mg Discontinued Medications Acetaminophen (Tylenol Extra Strength) 1,000 mg PO ONETIME ONE Stop: 03/29/19 05:25 Last Admin: 03/29/19 05:38 Dose: 1,000 mg Enoxaparin Sodium (Lovenox) 40 mg SUBCUT DAILY [facility] Last Admin: 03/31/19 08:45 Dose: 40 mg Ceftriaxone Sodium 2 gm/ (Sodium Chloride) 50 mls @ 100 mls/hr IV ONETIME ONE Stop: 03/29/19 07:00 Last Admin: 03/29/19 06:44 Dose: 100 mls/hr Sodium Chloride (Normal Saline) 1,000 mls @ 999 mls/hr IV .BOLUS ONE Stop: 03/29/19 06:10 Last Admin: 03/29/19 05:10 Dose: 999 mls/hr Sodium Chloride (Normal Saline) 1,000 mls @ 999 mls/hr IV BOLUS [facility] Last Admin: 03/29/19 05:10 Dose: 999 mls/hr Sodium Chloride (Normal Saline) 1,000 mls @ 250 mls/hr IV ASDIRECTED [facility] Last Admin: 03/29/19 06:10 Dose: 250 mls/hr Ceftriaxone Sodium 1 gm/ (Sodium Chloride) 50 mls @ 100 mls/hr IV Q24H [facility] Last Admin: 03/31/19 05:17 Dose: 100 mls/hr Lactated Ringer's (Ringers, Lactated) 1,000 mls @ 125 mls/hr IV ASDIRECTED [facility] Last Admin: 03/30/19 03:28 Dose: 125 mls/hr Lactated Ringer's (Ringers, Lactated) 1,000 mls @ 500 mls/hr IV BOLUS ONE Stop: 03/29/19 13:34 Last Admin: 03/29/19 11:35 Dose: 500 mls/hr Magnesium Sulfate 2 gm/ Premix 50 mls @ 25 mls/hr IV Q6H [facility] Stop: 03/30/19 16:59 Last Admin: 03/30/19 15:02 Dose: 25 mls/hr Lactated Ringer's (Ringers, Lactated) 1,000 mls @ 25 mls/hr IV ASDIRECTED [facility] Last Admin: 03/31/19 04:21 Dose: 25 mls/hr Lidocaine HCl (Xylocaine 2% Jelly) 10 ml MUCMEM ONETIME ONE Stop: 03/29/19 05:35 Last Admin: 06/16/19 05:38 Dose: 10 ml Potassium Chloride (Klor-Con M20) 40 meq PO ONETIME ONE Stop: 03/30/19 08:31 Last Admin: 03/30/19 08:48 Dose: 40 meq Sodium Chloride (Saline Flush) 10 ml FLUSH ASDIRECTED PRN PRN Reason: Keep Vein Open Last Admin: 03/29/19 07:02 Dose: 10 ml - Exam Quality Assessment: Denies: Supplemental Oxygen General: Reports: Alert, Oriented, Cooperative, No Acute Distress Lungs: Reports: Normal Respiratory Effort GI/Abdominal Exam: Soft, No Distention Extremities: No Pedal Edema Skin: Reports: Warm, Dry Psy/Mental Status: Reports: Alert, Normal Affect
[2019-04-01] MEDS: Oxybutynin 5 MG Tab PO SCH (09:41)
[2019-04-01] MEDS: Clopidogrel 75 MG Tab PO SCH (09:41)
[2019-04-01] MEDS: Loratadine 10 MG Tab PO SCH (09:41)
[2019-04-01] MEDS: Aspirin 81 MG Tab.EC PO SCH (09:41)
== END 2019-04-01 10:05 | disposition home or self-care (01) | DRG 698 ==
LOC: JP.ED 05:02 → JP.ICU 07:35 → JP.MS 03-30 16:52
PROVIDERS: ADMIT Hospitalist; ATTEND Internal Medicine
DX: T83.511A Infection and inflammatory reaction due to indwelling urethral catheter, initial encounter (principal); A41.51 Sepsis due to Escherichia coli [E. coli]; N39.0 Urinary tract infection, site not specified; N40.1 Benign prostatic hyperplasia with lower urinary tract symptoms; R33.8 Other retention of urine; I25.10 Atherosclerotic heart disease of native coronary artery without angina pectoris; Z98.890 Other specified postprocedural states; Z95.5 Presence of coronary angioplasty implant and graft; R00.0 Tachycardia, unspecified; R50.9 Fever, unspecified; R06.02 Shortness of breath; R53.1 Weakness; H91.90 Unspecified hearing loss, unspecified ear; Z95.1 Presence of aortocoronary bypass graft; E78.00 Pure hypercholesterolemia, unspecified; M54.9 Dorsalgia, unspecified; G89.29 Other chronic pain; F41.9 Anxiety disorder, unspecified; Z79.82 Long term (current) use of aspirin
CPT/HCPCS: 36415; 51702; 71045; 80053; 81001; 83605; 84484; 85025; 87040 ×2; 87077; 87186; 93005; 96361; 96365; 99285; A9270; J0696; J7030 ×3; J7050; 71046; 80048; 83735; 85027; 87086; 87088; 93010; J1650; J3475; J7120